=== PATIENT | male | born 1955 ===

== ENCOUNTER 2020-08-30 10:30 | Inpatient (IN) | payer OTHER ==
[~2020-08-30] VITALS: Ht 172.7 cm; Wt 66.2 kg
[2020-08-30] MEDS ORDERED: FOLIC AC PO (13:58)
[2020-08-30] MEDS ORDERED: LOSART PO (13:58)
[2020-08-30] MEDS ORDERED: VITAMIN C PO (13:58)
[2020-08-30] MEDS ORDERED: VITAMIN D PO (13:59)
[2020-08-30] MEDS ORDERED: VITAMIN B12 PO (13:59)
[2020-08-30] MEDS ORDERED: CLONAZEPAM0.5 MG PO (14:00)
[2020-09-04] MEDS ORDERED: PANTOPRAZOLE SO40 MG (08:03)
[2020-09-04] MEDS ORDERED: VITAMIN C1000 MG (08:04)
[2020-09-04] MEDS ORDERED: VITAMIN B-122500 MCG (08:04)
[2020-09-04] MEDS ORDERED: VITAMIN D3125 MC1 (08:04)
[2020-09-04] MEDS ORDERED: LOSARTAN POTASS25 MG (08:05)
[2020-09-04] MEDS ORDERED: FOLIC ACID1 MG (08:05)
[2020-09-07] MEDS ORDERED: PERCOCET 5-3251 EACH PO (12:31)
[2020-09-07] MEDS ORDERED: PRILOSEC OTC20 MG PO (12:31)
== END 2020-09-07 15:39 | disposition home or self-care (01) | DRG 331 ==
LOC: O/R 09-04 05:15 → SURH 09-04 05:15
PROVIDERS: Surgery; ADMIT Surgery; ATTEND Surgery
PROC: 0DTN4ZZ Resection of Sigmoid Colon, Percutaneous Endoscopic Approach (ICD-10-PCS; principal; 2020-09-04 10:30)
PROC: 0T9B80Z Drainage of Bladder with Drainage Device, Via Natural or Artificial Opening Endoscopic (ICD-10-PCS; 2020-09-04 10:30)
DX: K57.32 Diverticulitis of large intestine without perforation or abscess without bleeding (principal); N36.5 Urethral false passage; N21.0 Calculus in bladder; N40.0 Benign prostatic hyperplasia without lower urinary tract symptoms; N35.816 Other urethral stricture, male, overlapping sites